=== PATIENT | male | born 1950 | race Caucasian/White ===

== ENCOUNTER 2018-01-20 13:01 | Day surgery (SDC) | payer OTHER ==
[2018-01-20] MEDS ORDERED: FENTAnyl 50 MCG/ML VIAL (16:00)
[2018-01-20] MEDS ORDERED: MIDAZOLAM 1 MG/ML 2 ML INJ (16:00)
== END 2018-01-20 17:59 | disposition home or self-care (01) ==
LOC: GIL 13:01
DX: Z12.11 Encounter for screening for malignant neoplasm of colon (principal); K57.90 Diverticulosis of intestine, part unspecified, without perforation or abscess without bleeding; K64.0 First degree hemorrhoids
CPT/HCPCS: 45378